=== PATIENT | male | born 1965 | race African-American/Black ===

== ENCOUNTER 2019-03-13 12:23 | Emergency (ER) | payer MEDICAID, SELFPAY ==
[~2019-03-13] VITALS: Ht 185.4 cm; Wt 154.2 kg
[2019-03-13] MEDS ORDERED: LEXAPRO5 MG ORAL (12:48)
[2019-03-13] MEDS ORDERED: BACTRIM-DS1 EA ORAL (12:48)
[2019-03-13] MEDS ORDERED: METFORMIN HCL500 M1 ORAL (12:48)
[2019-03-13] MEDS ORDERED: AMLODIPINE BESYL5 MG ORAL (12:48)
--- NOTE | 2019-03-13 13:01 | NUR ---
ED Nurse Note: blood samples for septic and urine sent to lab. ERMD at bedside.
--- NOTE | 2019-03-13 13:03 | Emergency Room Report ---
History of Present Illness General Chief Complaint: Skin Rash/Abscess Source: Patient Present Illness HPI Disclaimer: Please note that this report is being documented using DRAGON technology. This can lead to erroneous entry secondary to incorrect interpretation by the dictating instrument. HPI: 54-year-old man presents for evaluation of scrotal rash. Symptoms have been present for several months. He notes worsening swelling and tenderness over the inner thighs, the scrotum and over the perirectal region. Denies any purulent drainage but sometimes has serous drainage. He was seen at a clinic last week and prescribed Bactrim. There is no improvement and he notes worsening scrotal edema. No prior history of surgeries. He is prediabetic. He has been using baby powder and cornstarch to try to keep the area dry but with little improvement. He denies fevers, chills, abdominal pain, vomiting or diarrhea. No difficulty passing urine, dysuria or hematuria. PMH: Hypertension PSH: Denies Allergies: Denies Social Hx: Regular tobacco use, intermittent alcohol use Allergies: Coded Allergies: No Known Allergies (Unverified , 03/13/19) Nursing Documentation-PMH Hx Hypertension: Yes Review of Systems All Other Systems: negative except mentioned in HPI Physical Exam Vital Signs Date Time Temp Pulse Resp B/P (MAP) Pulse Ox O2 Delivery O2 Flow Rate FiO2 03/13/19 12:30 98.2 95 17 189/118 (141) 95 Room Air General: Awake and alert, obese male in no acute distress HEENT: NC/AT. EOMI. Resp: Normal work of breathing : Scrotum is edematous and enlarged though nontender. There are some indurated lesions in the scrotal dee without fluctuance no active drainage. Skin: Diffuse pustules and raised papules over the inner thighs, scrotum and over the buttocks. No active drainage. No open wounds. Nikolsky is negative. No significant edema or erythema. MSK: Normal tone and bulk. Moving all extremities. No obvious deformity. Neuro: Awake and alert. Mentating appropriately Medical Decision Making Diagnostic Impression: Primary Impression: Hidradenitis suppurativa ER Course 54-year-old male presents for evaluation of rash over his inguinal regions and scrotum. Presentation is most consistent with a hidradenitis suppurativa. He was started on Bactrim but is not yet had any improvement. Attempted what was unable to arrange for surgical evaluation at this time. This was going to be done for outpatient follow-up reasons and patient does not require any acute surgical interventions at this time. The patient is happy to follow-up as an outpatient with surgeon provided in his health care network and possible dermatology and urology as well. He is well-appearing, no signs of systemic infection and appears to be localized to the skin alone. Believe he is stable and appropriate for outpatient follow-up at this time. The patient agrees with this treatment plan and states that he would like to be discharged to follow-up on an outpatient basis. We will continue the Bactrim for his full treatment course and he will return to the emergency department any new or worsening symptoms. He understands and agrees with this treatment plan will be discharged home. Last Vital Signs Date Time Temp Pulse Resp B/P (MAP) Pulse Ox O2 Delivery O2 Flow Rate FiO2 03/13/19 12:30 98.2 95 17 189/118 (141) 95 Room Air Disposition: HOME, SELF-CARE Condition: Stable Akira Guzman MD Mar 13, 2019 13:03
[2019-03-13 13:25] VITALS: BP 189/118
--- NOTE | 2019-03-13 13:26 | NUR ---
ED Nurse Note: pt sitting up in bed on his laptop alert oriented x4 NAD ermd eval done no nsg orders yet and pt denies pain at this time. Pt has a rash on inner thighs and a abscess on scrotum awaiting Dr. Warren.
[2019-03-13 15:25] VITALS: BP 160/105
== END 2019-03-13 15:20 | disposition home or self-care (01) ==
LOC: EMR 13:00
DX: L73.2 Hidradenitis suppurativa (principal); I10 Essential (primary) hypertension; E66.9 Obesity, unspecified; Z68.41 Body mass index [BMI] 40.0-44.9, adult
CPT/HCPCS: 99282

== ENCOUNTER 2020-02-25 00:31 | Emergency (ER) | payer MEDICAID ==
[~2020-02-25] VITALS: Ht 177.8 cm; Wt 163.3 kg
[~2020-02-25 00:31] MED LIST: AMLODIPINE BESYL5 MG ORAL; BACTRIM-DS1 EA ORAL; LEXAPRO5 MG ORAL; METFORMIN HCL500 M1 ORAL
--- NOTE | 2020-02-25 00:33 | NUR ---
ED Nurse Note: Patient brought in by ambulance [id number] from home d/t rapid afib. Patient aao x 4 and ambulatory upon arrival. Per pt, he was sleeping at home and was woken upon by rapid heart rate. Patient has Left AC 20g IV inserted by EMS, patent and flushing, bloodwork drawn and sent to lab. Patient changed into gown and placed on geodetic surveyor. Per EMS, they adminsitered adenosine 6-12 prior to arrival. Heart rate at 138 on geodetic surveyor. No acute distress noted.
--- NOTE | 2020-02-25 00:38 | Emergency Room Report ---
History of Present Illness General Chief Complaint: Chest Pain Source: Patient, EMS Present Illness HPI This is a 55-year-old male with a history of diabetes, high blood pressure, morbid obesity, and arrhythmia, who presents with complaint of palpitation. He said he woke up an hour prior to arrival he felt his heart was beating fast. He also has some chest pressure. He called 911. Per EMS his heart rate was in the 180s. They gave him adenosine which slowed down to the 140s. His chest pressure improved. Patient said he had this problem before. Last time was 8 years ago. Denies any fever chills but denies any nausea vomiting. Denies any syncope. Denies any recent alcohol or drug use. Patient said that he has not been taking his medication for the last 3 months. Allergies: Coded Allergies: No Known Allergies (Unverified , 03/13/19) COVID-19 Screening Contact w/high risk pt: No Experienced COVID-19 symptoms?: No COVID-19 Testing performed CIRCLE CUTTING SAW OPERATOR: No Patient History Past Medical History: see triage record, old chart reviewed, DM, HTN Past Surgical History: none Pertinent Family History: none Social History: Reports: smoking, alcohol use Immunizations: other Reviewed Nursing Documentation: PMH: Agreed; PSxH: Agreed Nursing Documentation-PMH Hx Hypertension: Yes Hx Diabetes: Yes Review of Systems Eye: Denies: eye pain, blurred vision ENT: Denies: ear pain, nose congestion, throat swelling Respiratory: Denies: cough, shortness of breath Cardiovascular: Reports: chest pain, palpitations Gastrointestinal: Denies: abdominal pain, diarrhea, nausea, vomiting Musculoskeletal: Denies: back pain, joint pain Skin: Denies: rash Neurological: Denies: headache, numbness Endocrine: Denies: increased thirst, increased urine Hematologic/Lymphatic: Denies: easy bruising All Other Systems: negative except mentioned in HPI Physical Exam Vital Signs Date Time Temp Pulse Resp B/P (MAP) Pulse Ox O2 Delivery O2 Flow Rate FiO2 02/25/20 00:26 99.0 166 22 94/59 (71) 98 Room Air Vitals with tachycardia. Blood pressure 130/64 Sp02 EP Interpretation: reviewed, normal General Appearance: well appearing, no apparent distress, alert, obese Head: normocephalic, atraumatic Eyes: bilateral eye PERRL, bilateral eye EOMI ENT: hearing grossly normal, normal pharynx Neck: full range of motion, supple, no meningismus Respiratory: chest non-tender, lungs clear, normal breath sounds Cardiovascular #1: no murmur, tachycardia, irregularly irregular Gastrointestinal: normal bowel sounds, non tender, no mass, no organomegaly, no bruit, non-distended Musculoskeletal: back normal, normal range of motion, gait/station normal Psychiatric: mood/affect normal Procedures Critical Care Time Critical Care Time Critical care is mandated in this patient who presented with rapid A. fib. Patient require my urgent intervention to attenuate the risks of metabolic collapse which may lead to cardiovascular collapse and . Critical care time is 35 minutes excluding any reportable procedure. Critical care time included evaluation, multiple reevaluation, looking at old charts, interpreting laboratory and diagnostic data, discussing case with patient and family and consultants, and charting. Medical Decision Making Diagnostic Impression: Primary Impression: Rapid atrial fibrillation Additional Impressions: UTI (urinary tract infection) Qualified Codes: N30.00 - Acute cystitis without hematuria Hypokalemia Morbid obesity with BMI of 50.0-59.9, adult Hypertension Qualified Codes: I10 - Essential (primary) hypertension ER Course This patient presents with rapid A. fib. Rate control after dose of Cardizem. I also gave him atenolol orally. Chest x-ray showed cardiomegaly. Blood pressure improved. He also has hypokalemia and urinary tract infection. Patient is noncompliant with his medication. He has multiple risk factors should be admitted for further work-up. Patient is adamant about going home. He said this happened to him before and he does want to stay. He said if we worsen at home then he will come back. Patient is competent to make that decision. EKG Diagnostic Results Rate: tachycardiac Rhythm: other - Atrial fibrillation ST Segments: other - NSST changes ASA given to the pt in ED: Yes Rhythm Strip Diag. Results EP Interpretation: yes Chest X-Ray Diagnostic Results Chest X-Ray Diagnostic Results : Chest X-Ray Ordered: Yes # of Views/Limited/Complete: 1 View Indication: Shortness of Breath EP Interpretation: Yes Interpretation: no consolidation, no effusion, no pneumothorax, other - Cardiomegaly Impression: No acute disease Electronically Signed by: Anthony Spicer MD Last Vital Signs Date Time Temp Pulse Resp B/P (MAP) Pulse Ox O2 Delivery O2 Flow Rate FiO2 02/25/20 00:26 99.0 166 22 94/59 (71) 98 Room Air Status: improved Disposition: HOME, SELF-CARE Condition: Stable Scripts Cephalexin* (KEFLEX*) 500 Mg Capsule 500 MG ORAL TID, #21 CAP Prov: Anthony Spicer MD 02/25/20 Atenolol* (TENORMIN*) 50 Mg Tablet 50 MG ORAL DAILY, #90 TAB Prov: Anthony Spicer MD 02/25/20 Additional Instructions: You should be admitted for further work-up and monitoring. You are leaving against my medical advice. If you change your mind, return. If symptoms worsen call 911. Follow-up with your doctor within 7 days. Return if symptoms worsen. Anthony Spicer MD Feb 25, 2020 00:38
[2020-02-25 00:43] VITALS: BP 142/79
[2020-02-25 00:44] LABS: BASOPHILS % (AUTO) 1.6 % (0.0-2.0); EOSINOPHILS % (AUTO) 2.8 % (0.0-3.0); HEMATOCRIT 48.2 % (42.0-52.0); HEMOGLOBIN 15.8 G/DL (14.2-18.0); LYMPHOCYTES % (AUTO) 32.9 % (20.0-45.0); MEAN CORPUSCULAR VOLUME 84 FL (80-99); MONOCYTES % (AUTO) 6.2 % (1.0-10.0); NEUTROPHILS % (AUTO) 56.6 % (45.0-75.0); PLATELET COUNT 239 K/UL (150-450); RED BLOOD COUNT 5.75 M/UL (4.70-6.10); RED CELL DISTRIBUTION WIDTH 15.2 % (11.6-14.8); WHITE BLOOD COUNT 9.8 K/UL (4.8-10.8)
[2020-02-25] MEDS ORDERED: Aspirin Baby 81mg ORAL ONE (00:45)
[2020-02-25] MEDS ORDERED: dilTIAZem HCl 25mg/5ml Inj IVP ONE (00:45)
--- NOTE | 2020-02-25 00:45 | NUR ---
ED Nurse Note: Xray at bedside
[2020-02-25 00:56] LABS: ANION GAP 8 mmol/L (5-15); BLOOD UREA NITROGEN 9 mg/dL (7-18); CALCIUM 6.6 MG/DL (8.5-10.1); CARBON DIOXIDE 26 MMOL/L (21-32); CHLORIDE 108 MMOL/L (98-107); CREATININE 1.3 MG/DL (0.55-1.30); POTASSIUM 2.9 MMOL/L (3.5-5.1); SODIUM 142 MMOL/L (136-145)
[2020-02-25 01:08] LABS: ALANINE AMINOTRANSFERASE < 6 U/L (12-78); ALBUMIN 2.1 G/DL (3.4-5.0); ALBUMIN/GLOBULIN RATIO 0.6 (1.0-2.7); ALKALINE PHOSPHATASE 64 U/L (46-116); ASPARTATE AMINO TRANSFERASE 11 U/L (15-37); BILIRUBIN,TOTAL 0.2 MG/DL (0.2-1.0)
[2020-02-25 01:21] LABS: APPEARANCE,URINE SLIGHTLY CLOUDY; BILIRUBIN, URINE NEGATIVE (NEGATIVE); COLOR,URINE YELLOW; GLUCOSE, URINE (UA) 1+ (NEGATIVE); KETONES,URINE 1+ (NEGATIVE); LEUKOCYTE ESTERASE ,URINE 1+ (NEGATIVE); NITRITE,URINE NEGATIVE (NEGATIVE); PH,URINE 7 (4.5-8.0); PROTEIN,URINE 4+ (NEGATIVE); UROBILINOGEN,URINE NORMAL MG/DL (0.0-1.0)
[2020-02-25 01:29] VITALS: BP 134/87
[2020-02-25] MEDS ORDERED: cefTRIAXone 1 GM in NS 55 ML IVPB ONE (01:30)
[2020-02-25] MEDS ORDERED: CEPHALEXIN500 MG ORAL (01:37)
[2020-02-25] MEDS ORDERED: ATENOLOL50 MG ORAL (01:37)
--- NOTE | 2020-02-25 02:10 | NUR ---
ER DISCHARGE NOTE: Patient is cleared to be discharged per ERMD, pt is aox4, on room air, with stable vital signs. pt was given dc and prescription instructions, pt was able to verbalize understanding, pt id band and iv site removed intact without complications. pt is able to ambulate with steady gait. pt took all belongings. pt stable upon discharge.
[2020-02-25 02:13] VITALS: BP 133/79
--- NOTE | 2020-02-25 14:48 | Diagnostic Imaging Report ---
Indication: Chest pain, chest pressure, palpitations Technique: One view of the chest Comparison: none Findings: Body habitus limits evaluation. There appears to be blunting of left costophrenic sulcus, which may indicate a pleural effusion. The remainder the lungs and pleural spaces are grossly clear. The heart is upper limits normal in size. Impression: Very limited exam Possible left pleural effusion
== END 2020-02-25 02:10 | disposition home or self-care (01) ==
LOC: EDBD 00:31 → EMR 00:47 → CANBEDREQ 01:42 → EMR 02:10
DX: I48.91 Unspecified atrial fibrillation (principal); N30.00 Acute cystitis without hematuria; E87.6 Hypokalemia; E66.01 Morbid (severe) obesity due to excess calories; I10 Essential (primary) hypertension; Z68.43 Body mass index [BMI] 50.0-59.9, adult; E11.9 Type 2 diabetes mellitus without complications; I51.7 Cardiomegaly
CPT/HCPCS: 36415; 71045; 80053; 80307; 81003; 83880; 84439; 84443; 84484; 85025; 87086; 93005; 96365; 96375; G0480; J0696; Z7502; 99291; J8499